=== PATIENT | female | born 1980 | race Hispanic/Latino ===

== ENCOUNTER 2019-01-31 17:00 | Emergency (ER) | payer SELFPAY ==
[2019-01-31 17:09] VITALS: BP 132/92
[2019-01-31] MEDS ORDERED: NORCO 5/325 PO ONE (19:41)
[2019-01-31] MEDS ORDERED: ZOFRAN ODT PO ONE (20:10)
[2019-01-31] MEDS ORDERED: ZOFRAN ODT ONE (20:14)
--- NOTE | 2019-01-31 20:37 | Emergency Department Report ---
ED Upper Extremity Inj HPI - General Chief Complaint: Extremity Injury, Upper Stated Complaint: POSS DISLOCATED FINGER Time Seen by Provider: 01/31/19 19:39 Source: patient Mode of arrival: Ambulatory Limitations: No Limitations - History of Present Illness Initial Comments: Patient 39-year-old white female who presents for right fifth digit pain status post fall 5 days ago sedation landed on her hand hyperextending her pinky complaint is pain swelling 5/10 pain is exacerbated by movement palpation , pain is relieved by nothing states tingling at this time. MD Complaint: Injury to:: right Onset/Timin -: days(s) Other Extremity Injury: Fingers: Right (pinky finger ) Other Injuries: none Place: home Severity scale (0 -10): 5 Improves With: none Worsens With: movement of extremity Context: fall Associated Symptoms: other (tingling ) - Related Data Previous Rx's Medication Instructions Recorded Last Taken Type Naproxen 500 mg PO BID PRN #30 tablet 01/31/19 Unknown Rx Allergies Allergy/AdvReac Type Severity Reaction Status Date / Time sulfamethoxazole Allergy Rash Verified 01/31/19 17:01 [From Bactrim] trimethoprim [From Bactrim] Allergy Rash Verified 01/31/19 17:01 ED Review of Systems ROS: Stated complaint: POSS DISLOCATED FINGER Other details as noted in HPI Constitutional: denies: chills, fever Eyes: denies: eye pain, eye discharge, vision change ENT: denies: ear pain, throat pain Respiratory: denies: cough, shortness of breath, wheezing Cardiovascular: denies: chest pain, palpitations Endocrine: no symptoms reported Gastrointestinal: denies: abdominal pain, nausea, diarrhea Genitourinary: denies: urgency, dysuria, discharge Musculoskeletal: other (finger pain ). denies: back pain, joint swelling, arthralgia Skin: denies: rash, lesions Neurological: denies: headache, weakness, paresthesias Psychiatric: denies: anxiety, depression Hematological/Lymphatic: denies: easy bleeding, easy bruising ED Past Medical Hx - Social History Smoking Status: Unknown if ever smoked Substance Use Type: None - Medications Home Medications: Home Medications Medication Instructions Recorded Confirmed Last Taken Type Naproxen 500 mg PO BID PRN #30 tablet 01/31/19 Unknown Rx ED Physical Exam - General Limitations: No Limitations General appearance: alert, in no apparent distress - Head Head exam: Present: atraumatic, normocephalic - Eye Eye exam: Present: normal appearance, PERRL, EOMI Pupils: Present: normal accommodation - ENT ENT exam: Present: mucous membranes moist - Neck Neck exam: Present: normal inspection - Cardiovascular Cardiovascular Exam: Present: regular rate, normal rhythm. Absent: systolic murmur, diastolic murmur, rubs, gallop - GI/Abdominal GI/Abdominal exam: Present: soft, normal bowel sounds - Rectal Rectal exam: Present: deferred - Extremities Exam Extremities exam: Present: full ROM, tenderness (right pinky pain minimal swelling no ecchymosis no deformity rom mildly restricted by pain ), normal capillary refill. Absent: pedal edema, joint swelling - Expanded Upper Extremity Exam Right Hand Wrist exam: Present: full ROM, tenderness (right dorsal pinky finger pain at 1st joint ). Absent: laceration, ecchymosis, deformity, crepidus, dislocation, erythema, amputation, nail avulsion, subungual hematoma Neuro motor exam: Present: wrist extension intact, thumb opposition intact, thumb IP flexion intact, fingers 2-5 abduction intact Neurosensory exam: Present: 2-point discrimination, radial nerve intact, ulnar nerve intact, median nerve intact Vascular: Present: normal capillary refill, radial pulse, brachial pulse, ulnar pulse. Absent: vascular compromise, pulse deficit radial art, pulse deficit ulnar art, pulse deficit brachial art - Back Exam Back exam: Present: normal inspection, full ROM. Absent: tenderness, CVA tenderness (R), CVA tenderness (L), muscle spasm, paraspinal tenderness, vertebral tenderness, rash noted - Neurological Exam Neurological exam: Present: alert, oriented X3, CN II-XII intact, normal gait, motor sensory deficit, reflexes normal - Psychiatric Psychiatric exam: Present: normal affect, normal mood - Skin Skin exam: Present: warm, dry, intact, normal color. Absent: rash ED Course Vital Signs 01/31/19 01/31/19 17:07 19:52 Temperature 97.5 F L Pulse Rate 92 H Respiratory 16 16 Rate Blood Pressure 132/92 O2 Sat by Pulse 98 Oximetry ED Medical Decision Making - Radiology Data Radiology results: image reviewed right 5th digit xray no fracture no soft tissue injury - Medical Decision Making this is a finger sprain , rom restricted by pain , there is no swelling no ecchymosis no deformity xray is normal no fracture no dislocation electrical drafter <3 sec bilat distal pulse intact no numbness adduction abduction flexion and extension intact plan nsaids, follow up with pcp and ortho in 2-3 days pt verbalized agreement and understanding of discharge plan, finger for lashonda rothmaning at this time. Critical care attestation.: If time is entered above; I have spent that time in minutes in the direct care of this critically ill patient, excluding procedure time. ED Disposition Clinical Impression: Sprain of finger, right Qualifiers: Encounter type: initial encounter Finger: little finger Sprain of finger site: metacarpophalangeal joint Qualified Code(s): S63.656A - Sprain of metacarpophalangeal joint of right little finger, initial encounter Disposition: TO HOME OR SELFCARE Is pt being admited?: No Does the pt Need Aspirin: No Condition: Stable Instructions: Finger Sprain (ED) Prescriptions: Naproxen 500 mg PO BID PRN #30 tablet PRN Reason: pain Referrals: [facility] MD KARLIE [Primary Care Provider] - 3-5 Days FEDERICO WHITT MD [Staff Physician] - 3-5 Days Forms: Work/School Release Form(ED) Time of Disposition: 20:42
--- NOTE | 2019-01-31 22:16 | XRay Report ---
PROCEDURE: XR HAND 3+V RT TECHNIQUE: Right hand radiographs, PA, lateral, and oblique views. HISTORY: finger pain deformity COMPARISONS: None . FINDINGS: Fracture (s) and/or Dislocation(s): None . Alignment: Normal . Joint space(s): Normal . Soft tissues: Normal . Bone mineralization: Normal . Incidental 5 mm osteoma in the distal radius. Foreign bodies: None . IMPRESSION: There is no fracture or dislocation. . This document is electronically signed by Rigo Reza MD., January 31 2019 10:14:10 PM ET
== END 2019-01-31 20:51 | disposition home or self-care (01) ==
LOC: ED 17:00
DX: S63.656A Sprain of metacarpophalangeal joint of right little finger, initial encounter (principal); Z88.2 Allergy status to sulfonamides; W18.39XA Other fall on same level, initial encounter; Y93.89 Activity, other specified; Y92.098 Other place in other non-institutional residence as the place of occurrence of the external cause; Y99.8 Other external cause status
CPT/HCPCS: 99283; Q0162